=== PATIENT | female | born 1930 | race Caucasian/White ===

== ENCOUNTER 2016-11-23 13:44 | Inpatient (IN) | payer MEDICARE, MEDICAID ==
--- NOTE | 2016-11-23 14:24 | ED Physician Chart ---
Chief Complaint/HPI - Patient Information Date Seen:: 11/23/16 Time Seen:: 14:10 Chief Complaint:: skin tears History of Present Illness:: THIS IS AN 85 YO FEMALE [facility] PATIENT SENT TO THIS ER FOR AN EVALUATION OF HER SKIN BLISTERS OVER HER ENTIRE BODY. SHE HAS NOT HAD FEVER OR CHEST PAIN. SHE IS VERYL COMBATIVE AND UNCOOPERATIVE. SHE IS UNABLE TO GIVE A REVIEW OF SYSTEMS OR MEDICAL HISTORY. Allergies:: Allergies Allergy/AdvReac Type Severity Reaction Status Date / Time No Known Allergies Allergy Verified 03/21/16 16:58 Vitals:: Vital Signs - 8 hr 11/23/16 14:05 Temp 98.2 F HR 70 RR 19 BP 121/66 O2 Sat % 96 Historian:: Medical Records Review:: Nurse's Note Reviewed, Old Chart Reviewed Review of Systems - Review of Systems General/Constitutional: No fever, No chills, No weight loss, No weakness, No diaphoresis, No edema, No loss of appetite, Other (UNABLE TO GIVE AN REVIEW OF SYSTEMS.) Skin: No skin lesions, No rash, No bruising Head: No headache, No light-headedness Eyes: No loss of vision, No pain, No diplopia ENT: No earache, No nasal drainage, No sore throat, No tinnitus Neck: No neck pain, No swelling, No thyromegaly, No stiffness, No mass noted Cardio Vascular: No chest pain, No palpitations, No PND, No orthopnea, No edema Pulmonary: No SOB, No cough, No sputum, No wheezing GI: No nausea, No vomiting, No diarrhea, No pain, No melena, No hematochezia, No constipation, No hematemesis G/U: No dysuria, No frequency, No hematuria Musculoskeletal: No bone or joint pain, No back pain, No muscle pain Endocrine: No polyuria, No polydipsia Psychiatric: No prior psych history, No depression, No anxiety, No suicidal ideation Hematopoietic: No bruising, No lymphadenopathy Allergic/Immuno: No urticaria, No angioedema Neurological: No syncope, No focal symptoms, No weakness, No paresthesia, No headache, No seizure, No dizziness, No confusion, No vertigo Past Medical History - Past Medical History Obtainable: Yes Past Medical History: HTN, DM, CHF, DVT/PE, Arthritis, Dementia Family Medical History - Family Member Mother History Unknown: Yes Physical Exam - Physical Examination General/Constitutional: Awake, Well-developed, well-nourished, Alert, No distress, GCS 15, Non-toxic appearing, Ambulatory Other Gen/Cons comments:: COMBATIVE Head: Atraumatic Eyes: Lids, conjuctiva normal, PERRL, EOMI Skin: No ecchymosis, Well hydrated, No lymphadenopathy Other Skin comments:: WHOLE BODY SKIN BLISTERS AND SOME ARE DRAINING CLEAR EXUDATE COMING OUT OF THE SKIN LESIONS. ENMT: External ears, nose nl, Nasal exam nl Other ENMT comments:: POOR DENTURE HYGIENE. Neck: Nontender, Full ROM w/o pain, No JVD, No nuchal rigidity, No bruit, No mass, No stridor Respiratory: Nl effort/Exclusion, Clear to Auscultation, No Wheeze/Rhonchi/Rales Cardio Vascular: RRR, No murmur, gallop, rubs, NL S1 S2 GI: No tenderness/rebounding/guarding, No organomegaly, No hernia, Normal BS's, Nondistended, No mass/bruits, No McBurney tenderness : No CVA tenderness Extremities: No tenderness or effusion, Full ROM, normal strength in all extremities, No edema, Normal digits & nails Neuro/Psych: Alert/oriented, DTR's symmetric, Normal sensory exam, Normal motor strength, Judgement/insight normal, Mood normal, Normal gait Other Neuro/Psych comments:: 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 Misc: normal gait, Normal back, No paraspinal tenderness ED Septic Shock - . Is Septic Shock (SBP<90, OR Lactate>4 mmol\L) present?: No - <6hrs of presentation: Vital Signs: Vital Signs - 8 hr 11/23/16 14:05 Temp 98.2 F HR 70 RR 19 BP 121/66 O2 Sat % 96 Reassessment (Disposition) - Reassessment Reassessment Condition:: Unchanged - Diagnosis Diagnosis:: BULLOUS STREP INFECTION OF THE SKIN ANEMIA DIABETES MELLITUS UNCONTROLLED DEHYDRATED PSYCHOSIS AND COMBATIVE - Patient Disposition Discharge/Transfer:: Acute Care w/in this hosp Admitting Medical Physician:: Wagner Deras Condition at Disposition:: Unchanged
[2016-11-23 14:37] LABS: MEAN CELL VOLUME 88.7 fl (81-100); MEAN CORPUSCULAR HEMOGLOBIN 29.7 pg (27.0-31.0); MEAN CORPUSCULAR HGB CONC 33.5 pg (28.0-36.0); MEAN PLATELET VOLUME 9.2 fl; PLATELET COUNT 150 Th/cmm (150-400); RED BLOOD COUNT 3.86 Mil/cmm (3.80-5.20); RED CELL DISTRIBUTION WIDTH 17.3 % (11.5-20.0); WHITE BLOOD COUNT 10.6 Th/cmm (4.8-10.8)
[2016-11-23 14:44] LABS: HEMATOCRIT 34.3 % (35.0-45.0); HEMOGLOBIN 11.5 gm/dL (11.7-16.1)
[2016-11-23 14:54] LABS: INR 0.99 (0.5-1.4); PROTHROMBIN TIME (TEST) 10.3 SECONDS (9.5-11.5)
[2016-11-23 14:55] LABS: ALB/GLOB RATIO 1.1 (1.0-1.8); ALKALINE PHOSPHATASE 105 U/L (34-104); ANION GAP 7.9 (7.0-16.0); BILIRUBIN,TOTAL 0.7 mg/dL (0.3-1.0); BUN - UREA NITROGEN 42 mg/dL (7-25); CALCIUM SERUM 8.6 mg/dL (8.6-10.3); CARBON DIOXIDE 30.8 mEq/L (21.0-31.0); CHLORIDE 105 mEq/L (98-107); CREATININE - SERUM 0.7 mg/dL (0.6-1.2); GLUCOSE 314 mg/dL (70-105); POTASSIUM SERUM 3.7 mEq/L (3.5-5.1); SGOT 14 U/L (13-39); SGPT/ALT 17 U/L (7-52); SODIUM SERUM 140 mEq/L (136-145)
[2016-11-23 14:56] LABS: CHOLESTEROL 174 mg/dL (<200); TRIGLYCERIDES 212 mg/dL (<150)
--- NOTE | 2016-11-23 15:02 | Diagnostic Imaging Report ---
Portable chest x-ray HISTORY: Shortness of breath The heart appears enlarged. Surgical clips and suture material noted over the mid chest. Allowing for a poor inspiration, no acute focal pulmonary processes are seen. IMPRESSION: 1. No acute focal pulmonary processes 2. Cardiomegaly 3. Surgical changes
[2016-11-23 15:10] LABS: BAND NEUTROPHILE 2 % (0-10); EOSINOPHIL 1 % (0-5); NEUTROPHILS 87 % (40-80); PLATELET ESTIMATE ADEQUATE (NORMAL); TOTAL CELLS COUNTED 100
[2016-11-23] MEDS ORDERED: cefTRIAXone 1 GM in Sodium Chloride 0.9% 50 ML IV ONE (15:42)
[2016-11-23] MEDS ORDERED: Guaifenesin DM 10 ML UDC PO PRN (15:59)
[2016-11-23 16:40] LABS: URINE BILIRUBIN NEGATIVE (NEGATIVE); URINE BLOOD TRACE (NEGATIVE); URINE COLOR YELLOW; URINE GLUCOSE (UA) NEGATIVE (NEGATIVE); URINE KETONE NEGATIVE (NEGATIVE); URINE PROTEIN NEGATIVE (NEGATIVE); URINE RBC 0-1 /hpf (0-5); URINE UROBILINOGEN 0.2 E.U./dL (0.2 - 1.0)
[2016-11-23 16:41] LABS: URINE AMORPHOUS SEDIMENT FEW URATES (NONE SEEN); URINE BACTERIA FEW /hpf (NONE SEEN); URINE EPITHELIAL CELLS FEW /lpf (FEW); URINE HYALINE CAST 0-2 /lpf (0-2)
[2016-11-23] MEDS: Lactobacillus Rhamnosus 10 Billion CFU Capsule PO SCH (17:42)
[2016-11-23] MEDS: INSULIN ASPART SLIDING SCALE 100 UNITS/ML UNIT SUBQ SCH ×2 (17:42→20:38)
--- NOTE | 2016-11-23 17:51 | Consultation ---
Consult Note - Consult Note Service Date: 11/23/16 Referring Physician: Kane Deras Consult Note: PHYSICIAN Consultation Note: Date of Admission: 11/23/16 Purpose of Consultation: Chief Complaint: Patient MS MARLO ESPANA was admitted to location Medical/Surgical Unit I with ACUTE INFECTION. History of Present Illness: patient is 85 y female brought from the SNF for blisters and ecchymoses over the upper part of the body involving upper part pf arms and shoulders bilaterally. Otherwise, there is no fever, no chills. There is no nausea, vomiting, or diarrhea. Patient denies any abdominal pain. She was somewhat confused. Past Medical History: H/o HTN, DVT, CAD, Dementia. Allergies Allergy/AdvReac Type Severity Reaction Status Date / Time No Known Allergies Allergy Verified 03/21/16 16:58 Vital Signs Temp 98.2 F 11/23/16 14:05 Pulse 70 11/23/16 14:05 Resp 19 11/23/16 14:05 BP 121/66 11/23/16 14:05 Pulse Ox 96 11/23/16 14:05 Intake & Output 11/22/16 11/23/16 11/23/16 18:59 06:59 18:59 Weight (lbs) 83.007 kg Laboratory Results - last 24 hr 11/23/16 11/23/16 16:20 17:01 POC Glucose 242 H Urine Source CLEAN C Urine Color YELLOW Urine Clarity SLIGHT HAZY Urine pH 5.0 Ur Specific [place] 1.010 Urine Protein NEGATIVE Urine Glucose (UA) NEGATIVE Urine Ketones NEGATIVE Urine Blood TRACE Urine Nitrate NEGATIVE Urine Bilirubin NEGATIVE Urine Urobilinogen 0.2 Ur Leukocyte Esterase SMALL H Urine RBC 0-1 Urine WBC 6-10 H Ur Epithelial Cells FEW Amorphous Sediment FEW URATES Urine Bacteria FEW Hyaline Casts 0-2 H Urine Yeast FEW H Home Medication Medication Instructions Recorded Type Acetaminophen [Tylenol] 650 mg PO Q6H PRN 03/25/16 History QUEtiapine Fumarate [SEROquel] 12.5 mg PO BID 03/25/16 History QUEtiapine Fumarate [SEROquel] 25 mg PO HS 03/25/16 History Zolpidem Tartrate [Ambien] 5 mg PO HS PRN 03/25/16 History Carvedilol [Coreg] 25 mg PO DAILY #0 tab 03/31/16 Rx Hydrocodone/APAP 5mg/325mg [[place] 1 tab PO Q6H PRN #0 tab 03/31/16 Rx 5mg/325mg] Saccharomyces Boulardii [Florastor] 250 mg PO BID #0 cap 03/31/16 Rx Ascorbic Acid [Vitamin C] 500 mg PO BID 11/23/16 History Atorvastatin Calcium [Lipitor] 20 mg PO HS 11/23/16 History Furosemide [Lasix] 40 mg IVP DAILY 11/23/16 History Guaifenesin DM [Robitussin DM] 10 ml PO Q6HR PRN 11/23/16 History Insulin Aspart Sliding Scale See Protocol SUBQ ACHS 11/23/16 History [NovoLOG INSULIN SLIDING SCALE] Multivitamin w/ Minerals 1 tab PO DAILY 11/23/16 History [Theragran M] Mupirocin Oint [Bactroban] 1 appl TP DAILY 11/23/16 History Pantoprazole [Protonix] 40 mg PO DAILY 11/23/16 History Potassium Chloride Elixir 30 ml PO DAILY 11/23/16 History Povidone Iodine [Betadine] 1 appl TP DAILY 11/23/16 History Prostat 30 ml PO TID 11/23/16 History predniSONE [Deltasone] 20 mg PO DAILY 11/23/16 History Current Medications Generic Name Dose Route Start Last Admin Trade Name Freq PRN Reason Stop Dose Admin Acetaminophen 650 mg 11/23/16 15:59 Tylenol PO 01/22/17 15:58 Q6H PRN MILD PAIN Acetaminophen/Hydrocodone Bitart 1 tab 11/23/16 15:59 [place] 5mg/325mg PO 01/22/17 15:58 Q6H PRN moderate-severe pain Ascorbic Acid 500 mg 11/23/16 17:00 Vitamin C PO 01/22/17 16:59 BID BIJU Atorvastatin Calcium 20 mg 11/23/16 21:00 Lipitor PO 01/22/17 20:59 HS BIJU Carvedilol 25 mg 11/24/16 09:00 Coreg PO 01/23/17 08:59 DAILY BIJU Furosemide 40 mg 11/24/16 09:00 Lasix IVP 01/23/17 08:59 DAILY BIJU Guaifenesin/Dextromethorphan 10 ml 11/23/16 15:59 Robitussin Dm PO 01/22/17 15:58 Q6HR PRN Cough Insulin Aspart 0 units 11/23/16 16:30 Novolog Insulin Sliding Scale SUBQ 01/22/17 16:29 ACHS [facility] Protocol Lactobacillus Rhamnosus 1 each 11/23/16 17:00 Culturelle PO 01/22/17 16:59 BID BIJU Mupirocin 1 appl 11/24/16 09:00 Bactroban Oint TP 01/23/17 08:59 DAILY BIJU Pantoprazole Sodium 40 mg 11/24/16 09:00 Protonix PO 01/23/17 08:59 DAILY BIJU Potassium Chloride 40 meq 11/24/16 09:00 Potassium Chloride Elixir PO 01/23/17 08:59 DAILY BIJU Prednisone 20 mg 11/24/16 09:00 Deltasone PO 01/23/17 08:59 DAILY BIJU Quetiapine Fumarate 12.5 mg 11/23/16 17:00 Seroquel PO 01/22/17 16:59 BID BIJU Protocol Quetiapine Fumarate 25 mg 11/23/16 21:00 Seroquel PO 01/22/17 20:59 HS BIJU Protocol Zolpidem Tartrate 5 mg 11/23/16 15:59 Ambien PO 01/22/17 15:58 HS PRN Insomnia Review of Systems: A 12 point ROS was reviewed with the pertinent positive and negatives noted in the HPI. Physical Exam: General: Comfortable, not in distress. HEENT: EOMI Bilaterally, PERRLA Bilaterally, Head is normocephalic, atraumatic on inspection. Cardio: +S1/S2 Auscultated, RRR, no murmurs/rubs/gallops noted Respiratory: Clear to Auscultate Bilaterally Abdominal: Soft, Nondistended, Nontender to palpation x 4 quadrants Extremities: No Edema noted in the lower extremities Neurological: Alert and confused, No Acute Distress. Cranial Nerves II-XII intact bilaterally, Gait Steady, No Focal Deficits noted. IMPRESSION: 1. Blistering lesions with ecchymosis, may have autoimmune etiology versus allergic reaction. Unlikely of infectious origin, which cannot be ruled out. 2. Dementia. 3. HTN. 4. CAD. RECOMMENDATIONS: Continue prednisone. No need of antivioitcs at this time. ESR, TORIN. lupus panel. Signed, Nasir Rodrigez M.D. [id number]
[2016-11-23 19:42] VITALS: BP 113/78
[2016-11-23] MEDS: Atorvastatin Calcium 10 MG TAB PO SCH (20:38)
[2016-11-24] MEDS: INSULIN ASPART SLIDING SCALE 100 UNITS/ML UNIT SUBQ SCH ×4 (06:33→21:44)
[2016-11-24 07:17] LABS: % BASOPHILS 0.1 % (0.0-2.0); % EOSINOPHILS 0.7 % (0.0-5.0); % LYMPHOCYTES 14.5 % (20.0-50.0); % MONOCYTES 4.2 % (2.0-10.0); % NEUTROPHILS 80.5 % (40.0-80.0); HEMATOCRIT 37.4 % (35.0-45.0); HEMOGLOBIN 12.4 gm/dL (11.7-16.1); MEAN CELL VOLUME 88.1 fl (81-100); MEAN CORPUSCULAR HEMOGLOBIN 29.3 pg (27.0-31.0); MEAN CORPUSCULAR HGB CONC 33.2 pg (28.0-36.0); MEAN PLATELET VOLUME 9.5 fl; NEUTROPHILE ABSOLUTE 7.8 Th/cmm (1.8-8.0); PLATELET COUNT 164 Th/cmm (150-400); RED BLOOD COUNT 4.25 Mil/cmm (3.80-5.20); RED CELL DISTRIBUTION WIDTH 17.1 % (11.5-20.0); WHITE BLOOD COUNT 9.7 Th/cmm (4.8-10.8)
[2016-11-24 07:30] LABS: ALB/GLOB RATIO 1.1 (1.0-1.8); ALKALINE PHOSPHATASE 107 U/L (34-104); ANION GAP 13.6 (7.0-16.0); BILIRUBIN,TOTAL 0.9 mg/dL (0.3-1.0); BUN - UREA NITROGEN 36 mg/dL (7-25); CALCIUM SERUM 9.1 mg/dL (8.6-10.3); CARBON DIOXIDE 34.7 mEq/L (21.0-31.0); CHLORIDE 102 mEq/L (98-107); CREATININE - SERUM 0.6 mg/dL (0.6-1.2); GLUCOSE 87 mg/dL (70-105); POTASSIUM SERUM 3.3 mEq/L (3.5-5.1); SGOT 14 U/L (13-39); SGPT/ALT 18 U/L (7-52); SODIUM SERUM 147 mEq/L (136-145)
[2016-11-24 08:40] LABS: INR 0.99 (0.5-1.4); PROTHROMBIN TIME (TEST) 10.3 SECONDS (9.5-11.5)
[2016-11-24 08:46] LABS: CHOLESTEROL 187 mg/dL (<200); TRIGLYCERIDES 198 mg/dL (<150)
[2016-11-24] MEDS: Pantoprazole 40 mg EC Tab PO SCH (09:39)
[2016-11-24] MEDS: Multivitamin w/ Minerals Tab PO SCH (09:39)
[2016-11-24] MEDS: Lactobacillus Rhamnosus 10 Billion CFU Capsule PO SCH ×2 (09:39→16:37)
[2016-11-24] MEDS: Potassium Chloride Elixir 20 mEq /15 mL UDC PO SCH (09:39)
--- NOTE | 2016-11-24 11:28 | History & Physical ---
ADMIT DATE: 11/23/2016 CHIEF COMPLAINT: Multiple areas of skin discoloration and tears. HISTORY OF PRESENT ILLNESS: This is an 85-year-old female who is a resident of alf facility, was transferred to [facility] for multiple skin tears and discoloration to her upper and lower extremities as well as her upper and lower torso. The patient is a poor historian; therefore, majority of the history was taken from transfer notes as well as from alf transfer sheets. PAST MEDICAL HISTORY: Includes diabetes type 2, hypertension, psychosis, bilateral DVT, pulmonary embolus, CAD, dementia, DJD, COPD, status post coronary artery bypass graft, coronary artery disease. INITIAL LABORATORY DATA: White count 10.6, hemoglobin 11.5, hematocrit 34.3, platelets 150. Chem-7: Sodium 147, potassium 3.3, chloride 102, bicarbonate 34.7, BUN 36, creatinine 0.6, glucose 87. UA was positive for leukocyte esterase. CURRENT MEDICATIONS: Include atorvastatin, carvedilol, furosemide, hydrocodone, insulin sliding scale, lorazepam, pantoprazole, potassium, Seroquel, Ambien, and prednisone 20 mg daily. While in the ER, chest x-ray was ordered, which was essentially negative. FAMILY HISTORY: Noncontributory. ALLERGIES: No known drug allergies. SOCIAL HISTORY: The patient is a resident at alf [facility]. REVIEW OF SYSTEMS: Essentially negative with the exception of the above complaints. PHYSICAL EXAMINATION: VITAL SIGNS: Temperature 96.4, pulse 99, respiration 18, blood pressure 120/86. GENERAL: This is an 85-year-old female, well developed, well nourished, appears her stated age. HEENT: Normocephalic, atraumatic. Pupils equal, round, react to light and accommodation. Extraocular muscles intact. Ears: TMs intact. NECK: Supple. Good range of motion. No thyromegaly, no lymphadenopathy. CARDIOVASCULAR: Regular rate and rhythm. No murmurs, rubs or clicks. LUNGS: Clear to auscultation. No rales, rhonchi or wheezing. ABDOMEN: Soft, nontender, nondistended. Bowel sounds are active in all 4 quadrants. No rebound tenderness, rigidity, no guarding. SKIN: Multiple skin tears and skin discoloration noted with varying degrees of stage I, stage II pressure ulcers in the sacrococcyx area. The left upper leg shows an open blister. ____ also open blister. Right upper leg, scattered blisters. Right upper arm skin tear. ASSESSMENT: 1. Multiple areas of discoloration and tears to the skin. 2. Bilateral deep venous thrombosis. 3. History of pulmonary embolus. 4. Coronary artery disease. 5. Dementia. 6. Degenerative joint disease. 7. Chronic obstructive pulmonary disease. 8. Status post coronary artery bypass grafting. 9. Hyperlipidemia. PLAN: We will order ID consult. Continue current medications. We will discontinue prednisone for now. We will order CBC and Chem-7, sed rate. The patient to be started on preliminary antibiotic treatment. [facility]# [id number]
--- NOTE | 2016-11-24 12:09 | Infectious Disease Prog Note ---
Infectious Disease Subjective - Review of Systems Service Date: 11/24/16 Subjective: No new chnage. There is no fever. Infectious Disease Objective - Results Result Diagrams: 11/24/16 06:30 11/24/16 06:30 Recent Labs: Laboratory Last Values WBC 9.7 Th/cmm (4.8-10.8) 11/24/16 06:30 RBC 4.25 Mil/cmm (3.80-5.20) 11/24/16 06:30 Hgb 12.4 gm/dL (11.7-16.1) 11/24/16 06:30 Hct 37.4 % (35.0-45.0) 11/24/16 06:30 MCV 88.1 fl (81-100) 11/24/16 06:30 MCH 29.3 pg (27.0-31.0) 11/24/16 06:30 MCHC Differential 33.2 pg (28.0-36.0) 11/24/16 06:30 RDW 17.1 % (11.5-20.0) 11/24/16 06:30 Plt Count 164 Th/cmm (150-400) 11/24/16 06:30 MPV 9.5 fl 11/24/16 06:30 Neutrophils % 80.5 % (40.0-80.0) H 11/24/16 06:30 Band Neutrophils % 2 % (0-10) 11/23/16 14:25 Lymphocytes % 14.5 % (20.0-50.0) L 11/24/16 06:30 Monocytes % 4.2 % (2.0-10.0) 11/24/16 06:30 Eosinophils % 0.7 % (0.0-5.0) 11/24/16 06:30 Basophils % 0.1 % (0.0-2.0) 11/24/16 06:30 Neutrophils (Manual) 87 % (40-80) H 11/23/16 14:25 Lymphocytes 8 % (20-50) L 11/23/16 14:25 Monocytes 2 % (2-10) 11/23/16 14:25 Eosinophils 1 % (0-5) 11/23/16 14:25 Platelet Estimate ADEQUATE (NORMAL) 11/23/16 14:25 ESR 37 mm/hr (0-30) H 11/24/16 06:30 PT 10.3 SECONDS (9.5-11.5) 11/24/16 06:30 INR 0.99 (0.5-1.4) 11/24/16 06:30 PTT (Actin FS) 20.4 SECONDS (26.0-38.0) L 11/23/16 14:25 Sodium 147 mEq/L (136-145) H 11/24/16 06:30 Potassium 3.3 mEq/L (3.5-5.1) L 11/24/16 06:30 Chloride 102 mEq/L (98-107) 11/24/16 06:30 Carbon Dioxide 34.7 mEq/L (21.0-31.0) H 11/24/16 06:30 Anion Gap 13.6 (7.0-16.0) 11/24/16 06:30 BUN 36 mg/dL (7-25) H 11/24/16 06:30 Creatinine 0.6 mg/dL (0.6-1.2) 11/24/16 06:30 Est GFR ( Amer) TNP 11/24/16 06:30 Est GFR (Non-Af Amer) TNP 11/24/16 06:30 BUN/Creatinine Ratio 60.0 11/24/16 06:30 Glucose 87 mg/dL (70-105) 11/24/16 06:30 POC Glucose 189 MG/DL (70 - 105) H 11/24/16 11:12 Hemoglobin A1c % 7.9 % (4.0-6.0) H 11/23/16 14:25 Calcium 9.1 mg/dL (8.6-10.3) 11/24/16 06:30 Total Bilirubin 0.9 mg/dL (0.3-1.0) 11/24/16 06:30 AST 14 U/L (13-39) 11/24/16 06:30 ALT 18 U/L (7-52) 11/24/16 06:30 Alkaline Phosphatase 107 U/L (34-104) H 11/24/16 06:30 Troponin I 0.04 ng/mL (0.01-0.05) 11/23/16 14:25 Total Protein 5.7 gm/dL (6.0-8.3) L 11/24/16 06:30 Albumin 3.0 gm/dL (3.7-5.3) L 11/24/16 06:30 Globulin 2.7 gm/dL 11/24/16 06:30 Albumin/Globulin Ratio 1.1 (1.0-1.8) 11/24/16 06:30 Triglycerides 198 mg/dL (<150) H 11/24/16 06:30 Cholesterol 187 mg/dL (<200) 11/24/16 06:30 LDL Cholesterol Direct 117 mg/dL (75-193) 11/24/16 06:30 HDL Cholesterol 50 mg/dL (23-92) 11/24/16 06:30 TSH 1.39 uIU/ml (0.34-5.60) 11/23/16 14:18 Urine Source CLEAN C 11/23/16 16:20 Urine Color YELLOW 11/23/16 16:20 Urine Clarity SLIGHT HAZY (CLEAR) 11/23/16 16:20 Urine pH 5.0 11/23/16 16:20 Ur Specific [place] 1.010 (1.005-1.030) 11/23/16 16:20 Urine Protein NEGATIVE mg/dL (NEGATIVE) 11/23/16 16:20 Urine Glucose (UA) NEGATIVE mg/dL (NEGATIVE) 11/23/16 16:20 Urine Ketones NEGATIVE mg/dL (NEGATIVE) 11/23/16 16:20 Urine Blood TRACE (NEGATIVE) 11/23/16 16:20 Urine Nitrate NEGATIVE (NEGATIVE) 11/23/16 16:20 Urine Bilirubin NEGATIVE (NEGATIVE) 11/23/16 16:20 Urine Urobilinogen 0.2 E.U./dL (0.2 - 1.0) 11/23/16 16:20 Ur Leukocyte Esterase SMALL (NEGATIVE) H 11/23/16 16:20 Urine RBC 0-1 /hpf (0-5) 11/23/16 16:20 Urine WBC 6-10 /hpf (0-5) H 11/23/16 16:20 Ur Epithelial Cells FEW /lpf (FEW) 11/23/16 16:20 Amorphous Sediment FEW URATES (NONE SEEN) 11/23/16 16:20 Urine Bacteria FEW /hpf (NONE SEEN) 11/23/16 16:20 Hyaline Casts 0-2 /lpf (0-2) H 11/23/16 16:20 Urine Yeast FEW /hpf (NONE SEEN) H 11/23/16 16:20 RPR NONREACTIVE (NONREACTIVE) 11/23/16 14:25 - Physical Exam Vitals and I&O: Vital Signs Temp 97.7 F 11/24/16 10:00 Pulse 111 11/24/16 10:00 Resp 18 11/24/16 10:00 BP 120/75 11/24/16 10:00 Pulse Ox 93 11/24/16 10:00 Intake & Output 11/23/16 11/24/16 11/24/16 18:59 06:59 18:59 Intake Total 350 Balance 350 Weight (lbs) 83.007 kg Intake: Oral 350 Other: # Voids 2 # Bowel Movements 0 Active Medications: Current Medications Acetaminophen (Tylenol) 650 mg PO Q6H PRN PRN Reason: MILD PAIN Stop: 01/22/17 15:58 Acetaminophen/Hydrocodone Bitart ([place] 5mg/325mg) 1 tab PO Q6H PRN PRN Reason: moderate-severe pain Stop: 01/22/17 15:58 Ascorbic Acid (Vitamin C) 500 mg PO BID BIJU Stop: 01/22/17 16:59 Last Admin: 11/24/16 09:39 Dose: Not Given Atorvastatin Calcium (Lipitor) 20 mg PO HS BIJU Stop: 01/22/17 20:59 Last Admin: 11/23/16 20:38 Dose: 20 mg Carvedilol (Coreg) 25 mg PO DAILY BIJU Stop: 01/23/17 08:59 Last Admin: 11/24/16 09:39 Dose: Not Given Furosemide (Lasix) 40 mg IVP DAILY BIJU Stop: 01/23/17 08:59 Last Admin: 11/24/16 08:50 Dose: 40 mg Guaifenesin/Dextromethorphan (Robitussin Dm) 10 ml PO Q6HR PRN PRN Reason: Cough Stop: 01/22/17 15:58 Ceftriaxone Sodium 1 gm/ (Dextrose) 50 mls @ 100 mls/hr IV Q24H BIJU Stop: 01/23/17 08:59 Last Admin: 11/24/16 09:51 Dose: 100 mls/hr Insulin Aspart (Novolog Insulin Sliding Scale) 0 units SUBQ ACHS BIJU PRN Reason: Protocol Stop: 01/22/17 16:29 Last Admin: 11/24/16 06:33 Dose: Not Given Lactobacillus Rhamnosus (Culturelle) 1 each PO BID BIJU Stop: 01/22/17 16:59 Last Admin: 11/24/16 09:39 Dose: Not Given Mupirocin (Bactroban Oint) 1 appl TP DAILY BIJU Stop: 01/23/17 08:59 Last Admin: 11/24/16 08:50 Dose: 1 appl Pantoprazole Sodium (Protonix) 40 mg PO DAILY BIJU Stop: 01/23/17 08:59 Last Admin: 11/24/16 09:39 Dose: Not Given Potassium Chloride (Potassium Chloride Elixir) 40 meq PO DAILY BIJU Stop: 01/23/17 08:59 Last Admin: 11/24/16 09:39 Dose: Not Given Quetiapine Fumarate (Seroquel) 12.5 mg PO BID BIJU PRN Reason: Protocol Stop: 01/22/17 16:59 Last Admin: 11/24/16 09:40 Dose: Not Given Quetiapine Fumarate (Seroquel) 25 mg PO HS BIJU PRN Reason: Protocol Stop: 01/22/17 20:59 Last Admin: 11/23/16 20:38 Dose: 25 mg Zolpidem Tartrate (Ambien) 5 mg PO HS PRN PRN Reason: Insomnia Stop: 01/22/17 15:58 General: no acute distress, well developed, well nourished HEENT: atraumatic, normocephalic, PERRLA, EOMI Neck: supple Cardiovascular: S1S2, regular Lungs: clear to auscultation bilaterally, clear to percussion Abdomen: soft, no tender, no distended Extremities: no cyanosis, no clubbing, no edema Neurological: awake, alert Skin: intact, other (ecchylosis) Infectious Disease Assmt/Plan - Problem List Patient Problems: All Active Problems SKIN LESIONS WITH ULCERS AND ECCYMOSIS (Acute) - Assessment Assessment: IMPRESSION: 1. Blistering lesions with ecchymosis, may have autoimmune etiology versus allergic reaction. Unlikely of infectious origin, which cannot be ruled out. 2. Dementia. 3. HTN. 4. CAD. RECOMMENDATIONS: Continue prednisone. No need of antibiotics at this time. TORIN. lupus panel.
--- NOTE | 2016-11-24 16:23 | Admit Criteria Form ---
Admit Criteria Forms - Admit Criteria Diagnosis: DEEP VENOUS THROMBOSIS OF LOWER EXTREMITIES Clinical Indications for Admission to Inpatient Care ( Place 'X' for any and all applicable criteria): Admission is indicated for ANY ONE of the following (1)(2)(3)(4): [ ]I. Documented extensive thrombosis (e.g., clot in vena cava or above iliofemoral bifurcation) [ ]II. Limb-threatening thrombosis (e.g., phlegmasia cerulea dolens) [ ]III. Active bleeding [ ]IV. Recent surgery (e.g., within 6 weeks) [ ]V. Active peptic ulcer disease [ ]. Thrombosis while on anticoagulation [ ]VII. [X ]VIII. Appropriate monitoring and therapy cannot be provided in home or outpatient setting [ ]IX. Thrombolysis (e.g., catheter-directed) or pharmaco mechanical thrombectomy needed (3) [ ]X. Vena cava filter placement planned (3) [ ]XI. Severely diminished cardiopulmonary reserve (e.g., pulmonary hypertension) [ ]XII. Severe renal failure (e.g., GFR less than 30 mL/min/1.73m2 (0.5 mL/sec /1.73m2)) [ ]XIII. Known clotting abnormality or deficiency (antithrombin III, protein C , or protein S) [ ]XIV. History of heparin-induced thrombocytopenia [ ]XV . Personal or family history of bleeding tendency or familial bleeding disorder that requires inpatient admission rather than observation care (Also use Deep Venous Thrombosis of Lower Extremities: Observation Care as appropriate) because of ANY ONE of the following: [ ]a) Significant allergic, autoimmune (thrombocytopenia), or coagulopathic reaction occurs in response to anticoagulation [ ]b) Other significant finding or clinical condition judged not to be within the scope of observation care Extended stay beyond goal length of stay may be needed for(1)(19): [ ]a) Hemorrhage or recent surgery(3) [ ]b) Inadequate oral anticoagulation [ ]c) Recurrent thromboembolism(3) [ ]d) Heparin-induced thrombocytopenia(14) The original [facility] content created by [facility] [employer] has been revised. The portions of the content which have been revised are identified through the use of italic text or in bold, and [employer]mberto [employer] has neither reviewed nor approved the modified material. All other unmodified content is copyright [facility]. Please see references footnoted in the original [facility] edition 2016 Admit Criteria Met?: Yes
[2016-11-24] MEDS: Atorvastatin Calcium 10 MG TAB PO SCH (21:41)
[2016-11-25] MEDS: INSULIN ASPART SLIDING SCALE 100 UNITS/ML UNIT SUBQ SCH ×4 (06:39→21:30)
[2016-11-25 07:16] LABS: % BASOPHILS 0.1 % (0.0-2.0); % EOSINOPHILS 0.9 % (0.0-5.0); % LYMPHOCYTES 10.6 % (20.0-50.0); % MONOCYTES 3.6 % (2.0-10.0); % NEUTROPHILS 84.8 % (40.0-80.0); HEMATOCRIT 36.9 % (35.0-45.0); HEMOGLOBIN 12.2 gm/dL (11.7-16.1); MEAN CELL VOLUME 87.3 fl (81-100); MEAN CORPUSCULAR HGB CONC 33.2 pg (28.0-36.0); MEAN PLATELET VOLUME 9.2 fl; NEUTROPHILE ABSOLUTE 9.8 Th/cmm (1.8-8.0); PLATELET COUNT 153 Th/cmm (150-400); RED BLOOD COUNT 4.23 Mil/cmm (3.80-5.20); RED CELL DISTRIBUTION WIDTH 17.8 % (11.5-20.0); WHITE BLOOD COUNT 11.5 Th/cmm (4.8-10.8)
[2016-11-25 07:27] LABS: ALKALINE PHOSPHATASE 114 U/L (34-104); BILIRUBIN,TOTAL 1.2 mg/dL (0.3-1.0); BUN - UREA NITROGEN 30 mg/dL (7-25); CARBON DIOXIDE 33.2 mEq/L (21.0-31.0); CHLORIDE 103 mEq/L (98-107); CREATININE - SERUM 0.6 mg/dL (0.6-1.2); GLUCOSE 165 mg/dL (70-105); POTASSIUM SERUM 3.2 mEq/L (3.5-5.1); SGOT 13 U/L (13-39); SGPT/ALT 17 U/L (7-52); SODIUM SERUM 143 mEq/L (136-145)
--- NOTE | 2016-11-25 07:30 | Consultation ---
DATE OF CONSULTATION: 11/24/2016 IDENTIFYING INFORMATION: The patient is an 85-year-old female. REASON FOR CONSULTATION: The patient was admitted with acute infection. She has dementia. The patient has been on psychotropic medications. The patient herself was a poor historian, unable to participate in a meaningful conversation and I talked to the charge nurse that talking to her and he could not give me any answer either. The patient has infection and she also has a history of dementia, confusion. She has multiple discolorations and tears to her skin. PAST PSYCHIATRIC HISTORY: Dementia. PAST MEDICAL HISTORY: Deferred to the medical doctor. FAMILY AND SOCIAL HISTORY: Unobtainable. MENTAL STATUS EXAMINATION: The patient was unable to participate in a meaningful conversation, lethargic, unable to tell me her age, where she is, why she is here, neither the staff was able to get anything from her. She is unable to answer questions regarding her condition. She is delirious. Her insight and judgment are impaired. IMPRESSION: AXIS I: Dementia and delirium. PLAN: I would recommend to continue her medication. Thank you very much for allowing me to participate in the care of this most interesting lady. I am covering for Dr. Han. Dr. Han will follow up with the patient. JOB# [id number]
[2016-11-25] MEDS: Lactobacillus Rhamnosus 10 Billion CFU Capsule PO SCH ×2 (09:25→16:22)
[2016-11-25] MEDS: Multivitamin w/ Minerals Tab PO SCH (09:25)
[2016-11-25] MEDS: Pantoprazole 40 mg EC Tab PO SCH (09:26)
[2016-11-25] MEDS: Potassium Chloride Elixir 20 mEq /15 mL UDC PO SCH (09:34)
[2016-11-25] MEDS: KCL 20mEq/100mL Premix 20 MEQ/100 ML PIGGYBACK IV SCH ×2 (09:40→12:26)
[2016-11-25] MEDS: Hydrocodone/APAP 5mg/325mg Tab PO PRN ×2 (10:49→16:22)
[2016-11-25] MEDS: Atorvastatin Calcium 10 MG TAB PO SCH (21:27)
[2016-11-26] MEDS: Hydrocodone/APAP 5mg/325mg Tab PO PRN ×2 (03:59→14:59)
[2016-11-26] MEDS: INSULIN ASPART SLIDING SCALE 100 UNITS/ML UNIT SUBQ SCH (06:51)
[2016-11-26 07:26] LABS: ALB/GLOB RATIO 1.1 (1.0-1.8); ALKALINE PHOSPHATASE 123 U/L (34-104); ANION GAP 8.5 (7.0-16.0); BILIRUBIN,TOTAL 1.2 mg/dL (0.3-1.0); BUN - UREA NITROGEN 33 mg/dL (7-25); BUN/CREATININE RATIO 47.1; CALCIUM SERUM 9.4 mg/dL (8.6-10.3); CARBON DIOXIDE 34.8 mEq/L (21.0-31.0); CHLORIDE 103 mEq/L (98-107); CREATININE - SERUM 0.7 mg/dL (0.6-1.2); GLUCOSE 186 mg/dL (70-105); POTASSIUM SERUM 4.3 mEq/L (3.5-5.1); SGOT 13 U/L (13-39); SGPT/ALT 17 U/L (7-52); SODIUM SERUM 142 mEq/L (136-145)
[2016-11-26] MEDS: Multivitamin w/ Minerals Tab PO SCH (09:38)
[2016-11-26] MEDS: Pantoprazole 40 mg EC Tab PO SCH (09:38)
[2016-11-26] MEDS: Lactobacillus Rhamnosus 10 Billion CFU Capsule PO SCH (09:38)
[2016-11-26] MEDS: Potassium Chloride Elixir 20 mEq /15 mL UDC PO SCH (09:50)
--- NOTE | 2016-11-26 12:00 | Infectious Disease Prog Note ---
Infectious Disease Subjective - Review of Systems Service Date: 11/26/16 Subjective: No new chnage. There is no fever. Infectious Disease Objective - Results Result Diagrams: 11/25/16 06:40 11/26/16 06:20 Recent Labs: Laboratory Last Values WBC 11.5 Th/cmm (4.8-10.8) H 11/25/16 06:40 RBC 4.23 Mil/cmm (3.80-5.20) 11/25/16 06:40 Hgb 12.2 gm/dL (11.7-16.1) 11/25/16 06:40 Hct 36.9 % (35.0-45.0) 11/25/16 06:40 MCV 87.3 fl (81-100) 11/25/16 06:40 MCH 29.0 pg (27.0-31.0) 11/25/16 06:40 MCHC Differential 33.2 pg (28.0-36.0) 11/25/16 06:40 RDW 17.8 % (11.5-20.0) 11/25/16 06:40 Plt Count 153 Th/cmm (150-400) 11/25/16 06:40 MPV 9.2 fl 11/25/16 06:40 Neutrophils % 84.8 % (40.0-80.0) H 11/25/16 06:40 Band Neutrophils % 2 % (0-10) 11/23/16 14:25 Lymphocytes % 10.6 % (20.0-50.0) L 11/25/16 06:40 Monocytes % 3.6 % (2.0-10.0) 11/25/16 06:40 Eosinophils % 0.9 % (0.0-5.0) 11/25/16 06:40 Basophils % 0.1 % (0.0-2.0) 11/25/16 06:40 Neutrophils (Manual) 87 % (40-80) H 11/23/16 14:25 Lymphocytes 8 % (20-50) L 11/23/16 14:25 Monocytes 2 % (2-10) 11/23/16 14:25 Eosinophils 1 % (0-5) 11/23/16 14:25 Platelet Estimate ADEQUATE (NORMAL) 11/23/16 14:25 ESR 37 mm/hr (0-30) H 11/24/16 06:30 PT 10.3 SECONDS (9.5-11.5) 11/24/16 06:30 INR 0.99 (0.5-1.4) 11/24/16 06:30 PTT (Actin FS) 20.4 SECONDS (26.0-38.0) L 11/23/16 14:25 Sodium 142 mEq/L (136-145) 11/26/16 06:20 Potassium 4.3 mEq/L (3.5-5.1) 11/26/16 06:20 Chloride 103 mEq/L (98-107) 11/26/16 06:20 Carbon Dioxide 34.8 mEq/L (21.0-31.0) H 11/26/16 06:20 Anion Gap 8.5 (7.0-16.0) 11/26/16 06:20 BUN 33 mg/dL (7-25) H 11/26/16 06:20 Creatinine 0.7 mg/dL (0.6-1.2) 11/26/16 06:20 Est GFR ( Amer) TNP 11/26/16 06:20 Est GFR (Non-Af Amer) TNP 11/26/16 06:20 BUN/Creatinine Ratio 47.1 11/26/16 06:20 Glucose 186 mg/dL (70-105) H 11/26/16 06:20 POC Glucose 278 MG/DL (70 - 105) H 11/26/16 11:46 Hemoglobin A1c % 7.9 % (4.0-6.0) H 11/23/16 14:25 Calcium 9.4 mg/dL (8.6-10.3) 11/26/16 06:20 Magnesium 2.3 mg/dL (1.9-2.7) 11/25/16 06:40 Total Bilirubin 1.2 mg/dL (0.3-1.0) H 11/26/16 06:20 AST 13 U/L (13-39) 11/26/16 06:20 ALT 17 U/L (7-52) 11/26/16 06:20 Alkaline Phosphatase 123 U/L (34-104) H 11/26/16 06:20 Troponin I 0.04 ng/mL (0.01-0.05) 11/23/16 14:25 Total Protein 5.8 gm/dL (6.0-8.3) L 11/26/16 06:20 Albumin 3.0 gm/dL (3.7-5.3) L 11/26/16 06:20 Globulin 2.8 gm/dL 11/26/16 06:20 Albumin/Globulin Ratio 1.1 (1.0-1.8) 11/26/16 06:20 Prealbumin 23 mg/dL (9-32) 11/25/16 06:40 Triglycerides 198 mg/dL (<150) H 11/24/16 06:30 Cholesterol 187 mg/dL (<200) 11/24/16 06:30 LDL Cholesterol Direct 117 mg/dL (75-193) 11/24/16 06:30 HDL Cholesterol 50 mg/dL (23-92) 11/24/16 06:30 TSH 1.39 uIU/ml (0.34-5.60) 11/23/16 14:18 Urine Source CLEAN C 11/23/16 16:20 Urine Color YELLOW 11/23/16 16:20 Urine Clarity SLIGHT HAZY (CLEAR) 11/23/16 16:20 Urine pH 5.0 11/23/16 16:20 Ur Specific [place] 1.010 (1.005-1.030) 11/23/16 16:20 Urine Protein NEGATIVE mg/dL (NEGATIVE) 11/23/16 16:20 Urine Glucose (UA) NEGATIVE mg/dL (NEGATIVE) 11/23/16 16:20 Urine Ketones NEGATIVE mg/dL (NEGATIVE) 11/23/16 16:20 Urine Blood TRACE (NEGATIVE) 11/23/16 16:20 Urine Nitrate NEGATIVE (NEGATIVE) 11/23/16 16:20 Urine Bilirubin NEGATIVE (NEGATIVE) 11/23/16 16:20 Urine Urobilinogen 0.2 E.U./dL (0.2 - 1.0) 11/23/16 16:20 Ur Leukocyte Esterase SMALL (NEGATIVE) H 11/23/16 16:20 Urine RBC 0-1 /hpf (0-5) 11/23/16 16:20 Urine WBC 6-10 /hpf (0-5) H 11/23/16 16:20 Ur Epithelial Cells FEW /lpf (FEW) 11/23/16 16:20 Amorphous Sediment FEW URATES (NONE SEEN) 11/23/16 16:20 Urine Bacteria FEW /hpf (NONE SEEN) 11/23/16 16:20 Hyaline Casts 0-2 /lpf (0-2) H 11/23/16 16:20 Urine Yeast FEW /hpf (NONE SEEN) H 11/23/16 16:20 Rheumatoid Factor <10.0 IU/mL (0.0-13.9) 11/25/16 06:40 RPR NONREACTIVE (NONREACTIVE) 11/23/16 14:25 - Physical Exam Vitals and I&O: Vital Signs Temp 98.4 F 11/26/16 04:00 Pulse 97 11/26/16 09:42 Resp 20 11/26/16 08:05 BP 156/77 11/26/16 10:06 Pulse Ox 97 11/26/16 08:05 Intake & Output 11/25/16 11/26/16 11/26/16 18:59 06:59 18:59 Intake Total 1350 150 Balance 1350 150 Intake: Intake, IV Amount 150 KCL 20mEq/100mL Premix 20 100 meq In 100 ml @ 50 mls/ hr IV Q2H [facility] Rx#: [id number] cefTRIAXone 1 gm In 50 Dextrose 5% 50 ml @ 100 mls/hr IV Q24H [facility] Rx#: [id number] Oral 1200 150 Other: # Voids 4 3 Active Medications: Current Medications Acetaminophen (Tylenol) 650 mg PO Q6H PRN PRN Reason: MILD PAIN Stop: 01/22/17 15:58 Acetaminophen/Hydrocodone Bitart ([place] 5mg/325mg) 1 tab PO Q6H PRN PRN Reason: moderate-severe pain Stop: 01/22/17 15:58 Last Admin: 11/26/16 03:59 Dose: 1 tab Ascorbic Acid (Vitamin C) 500 mg PO BID BIJU Stop: 01/22/17 16:59 Last Admin: 11/26/16 09:50 Dose: 500 mg Atorvastatin Calcium (Lipitor) 20 mg PO HS BIJU Stop: 01/22/17 20:59 Last Admin: 11/25/16 21:27 Dose: 20 mg Carvedilol (Coreg) 25 mg PO DAILY BIJU Stop: 01/23/17 08:59 Last Admin: 11/26/16 09:42 Dose: 25 mg Furosemide (Lasix) 40 mg IVP DAILY BIJU Stop: 01/23/17 08:59 Last Admin: 11/26/16 10:06 Dose: 40 mg Guaifenesin/Dextromethorphan (Robitussin Dm) 10 ml PO Q6HR PRN PRN Reason: Cough Stop: 01/22/17 15:58 Ceftriaxone Sodium 1 gm/ (Dextrose) 50 mls @ 100 mls/hr IV Q24H BIJU Stop: 01/23/17 08:59 Last Admin: 11/26/16 10:05 Dose: 100 mls/hr Insulin Aspart (Novolog Insulin Sliding Scale) 0 units SUBQ ACHS BIJU PRN Reason: Protocol Stop: 01/22/17 16:29 Last Admin: 11/26/16 06:51 Dose: Not Given Lactobacillus Rhamnosus (Culturelle) 1 each PO BID BIJU Stop: 01/22/17 16:59 Last Admin: 11/26/16 09:38 Dose: 1 each Mupirocin (Bactroban Oint) 1 appl TP DAILY BIJU Stop: 01/23/17 08:59 Last Admin: 11/25/16 09:34 Dose: 1 appl Pantoprazole Sodium (Protonix) 40 mg PO DAILY BIJU Stop: 01/23/17 08:59 Last Admin: 11/26/16 09:38 Dose: 40 mg Potassium Chloride (Potassium Chloride Elixir) 40 meq PO DAILY BIJU Stop: 01/23/17 08:59 Last Admin: 11/26/16 09:50 Dose: 40 meq Quetiapine Fumarate (Seroquel) 25 mg PO HS BIJU PRN Reason: Protocol Stop: 01/22/17 20:59 Last Admin: 11/25/16 21:27 Dose: 25 mg Quetiapine Fumarate (Seroquel) 12.5 mg PO DAILY BIJU PRN Reason: Protocol Stop: 01/24/17 08:59 Last Admin: 11/26/16 09:38 Dose: 12.5 mg Zolpidem Tartrate (Ambien) 5 mg PO HS PRN PRN Reason: Insomnia Stop: 01/22/17 15:58 General: no acute distress, well developed, well nourished HEENT: atraumatic, normocephalic, PERRLA, EOMI Neck: supple Cardiovascular: S1S2, regular Lungs: clear to auscultation bilaterally, clear to percussion Abdomen: soft, bowel sounds, no tender, no distended Extremities: no cyanosis, no clubbing, no edema Neurological: awake, alert Skin: other (ecchymosis) Infectious Disease Assmt/Plan - Problem List Patient Problems: All Active Problems SKIN LESIONS WITH ULCERS AND ECCYMOSIS (Acute) - Assessment Assessment: IMPRESSION: 1. Blistering lesions with ecchymosis, may have autoimmune etiology versus allergic reaction. Unlikely of infectious origin, which cannot be ruled out. 2. Dementia. 3. HTN. 4. CAD. RECOMMENDATIONS: Continue prednisone. No need of antibiotics at this time. TORIN. lupus panel. Nutritional Asmnt/Malnutr-PDOC - Dietary Evaluation Malnutrition Findings (Please click <Entered> for more info): Nutritional Asmnt/Malnutrition Start: 11/24/16 12: 56 Text: Status: Complete Freq: Document 11/24/16 12:56 [facility] (Rec: 11/24/16 13:09 [email or web address]) Nutritional Asmnt/Malnutrition Patient General Information Nutritional Screening Consult Diagnosis Multiple areas of discoloration and tears to the skin Pertinent Medical Hx/Surgical Hx DM2, HTN, psychosis, bilateral DVT, pulmonary embolus, CAD, dementia, DJD, COPD, s/p coronary artery bypass graft Subjective Information 85 year old female from SNF. RD consult for low Eduardo, multiple bullae. Pt was asleep during visit, unable to be woken up, poor historian per H &P. Pt is overweight, moderate wasting to temporals noted. Pt requires total assist with meals. Spoke to QUALITY ANALYST, pt is usually resting with eyes closed, ate 50% breakfast with eyes closed today, appetite seems fair, no difficulties swallowing/chewing noted. Current Diet Order/ Nutrition Support [id number], chopped Pertinent Medications Lipitor, Lasix, Novolog, Culturelle, Protonix, Seroquel Pertinent Labs 11/23: glucose 314H, A1c 7.9H 5/2: glucose 87 Nutritional Hx/Data Height 1.63 m Height (Calculated Centimeters) 162.6 Current Weight (lbs) 77.973 kg Weight (Calculated Kilograms) 78.0 Weight (Calculated Grams) 24406.5 [place] Body Weight 120 Weight Status Overweight GI Symptoms Food Allergies No Usual diet at home [place]: regular, SHIRA, CCHO Skin Integrity/Comment: Eduardo 13. Wound care 5/2: multiple fluid filled bullae Current %PO Fair (50-74%) Estimated Nutritional Goals BEE in Kcals: Adj wt of IBW Calories/Kcals/Kg 133lb/60.4kg Kcals Calculated 1510-1812kcal (25-30kcal/kg) Protein: Adj wt of IBW Protein Calculated 60g (1g/kg) Fluid: ml 1510-1812ml (1ml/kcal) Nutritional Problem 1. Problem Problem Altered nutrition related laboratory values related to Etiology DM 2 aeb Signs/Symptoms: A1c 7.9H, glucose 314 on adm Intervention/Recommendation Comments 1. Continue with [id number]. Pt noted with fair appetite, 50% breakfast this AM. Recommend [id number] if PO increases to meet at least 75% of estimated nutritional needs to better promote glycemia control. 2. Continue to provide total assist with meals. Expected Outcomes/Goals Expected Outcomes/Goals 1. PO intake to meet at least 75% of estimated nutritional needs. Physician Parameters for PEM Serum Albumin (g/dl) 2.4 - 3.0 (Moderate)
[2016-11-26] MEDS ORDERED: VTE Chemical Prophylaxis Screen/Admission MC PRN (16:15)
--- NOTE | 2016-11-27 04:39 | Progress Notes ---
DATE: 11/26/2016 SUBJECTIVE: Chart reviewed and the patient interviewed. Also discussed the patient's condition with the staff and reviewed records and labs. The patient is more agitated and more irritable today. The patient also is yelling and screaming. Also, the patient was sedated and after I decreased her Seroquel. It seemed the patient is getting worse and agitated and irritable. She also still needs lots of redirections. The patient also is having trouble with her following directions. ASSESSMENT: The patient is more agitated. TREATMENT PLAN: We will continue monitoring her behavior. Also, we will increase Seroquel to 12.5 mg twice a day and 25 mg at bedtime, and we will continue to follow up. JOB# [id number]
[2016-11-27 15:13] LABS: INTERPRETATION Comment:; PTT-LA 23.8 sec (0.0-43.6)
--- NOTE | 2016-12-04 00:23 | Discharge Summary ---
DATE OF DISCHARGE: 11/26/2016 PRELIMINARY DIAGNOSES: 1. Multiple areas of discoloration and tears of the skin. 2. Bilateral deep vein thrombocytosis. 3. History of pulmonary embolism. 4. Coronary artery disease. 5. Dementia. 6. Degenerative joint disease. 7. Chronic obstructive pulmonary disease. 8. Status post coronary artery bypass graft. 9. Hyperlipidemia. DISCHARGE DIAGNOSES: 1. Multiple areas of discoloration and tears of the skin. 2. Bilateral deep vein thrombocytosis. 3. History of pulmonary embolism. 4. Coronary artery disease. 5. Dementia. 6. Degenerative joint disease. 7. Chronic obstructive pulmonary disease. 8. Status post coronary artery bypass graft. 9. Hyperlipidemia. BRIEF HISTORY OF PRESENT ILLNESS: This is an 85-year-old female who [facility] a [facility] who was transferred to [facility] for multiple skin tears and discoloration to her upper and lower extremities as well as her upper and lower torso. The patient is a poor historian, therefore, majority of her history was taken from the transfer notes as well as from the nursing transfer notes. PAST MEDICAL HISTORY: Includes diabetes type 2, hypertension, psychosis, bilateral DVT, pulmonary embolus, CAD, dementia, DJD, COPD, status post coronary artery bypass graft, and coronary artery disease. LAB DATA: While in the ER, the patient had her initial lab work that revealed a white count of 10.6, hemoglobin 11.5, hematocrit 34.3, and platelets 150,000. Her chem metabolic panel: Sodium was 147, potassium 3.3, chloride 102, bicarbonate 34.7, BUN 36, creatinine 0.6, and glucose 87. Her UA was positive for leukocyte esterase. CURRENT MEDICATIONS: Include atorvastatin, carvedilol, furosemide, hydrocodone, insulin sliding scale, lorazepam, pantoprazole, potassium chloride, Seroquel, Ambien, and prednisone 20 mg daily. While in the ER, the patient had a chest x-ray, which was essentially negative. HOSPITAL COURSE: The patient was seen and evaluated by ID for multiple skin tears and discoloration. During further evaluation and treatment, the patient was seen and evaluated by Dr. Nasir Rodrigez. Please see dictated note. The patient was also seen and examined by Dr. Quiorz. We will also evaluate her for her history of mental disorder. Please see dictated notes as well. The patient was subsequently discharged in stable condition, was to continue her current medications. DIRK: 12/03/2016 17:27 [facility]# [id number]
--- NOTE | 2016-12-10 12:10 | Consultation ---
DATE OF CONSULTATION: 11/25/2016 AGE: 85. SEX: Female. PHYSICIAN: Dr. Deras. DOG BREEDER: Dr. Han. REASON FOR THE CONSULT: Evaluating psychotropic medications. HISTORY OF PRESENT ILLNESS: The patient is an 85-year-old female, who was admitted under the care of Dr. Deras. The patient resides in a [facility]. The patient was admitted to the hospital with . DICTATION ENDS HERE JOB# [id number]
--- NOTE | 2016-12-24 09:06 | Progress Notes ---
DATE: Chart reviewed and the patient interviewed. Also discussed the patient's condition with the staff and reviewed records and labs. The patient seems to be sedated and she is sleepy. The patient also seems to be less agitated and she also seems to be easier to redirect her. The patient denies any side effects of medications except the patient seems to be slightly sedated. ASSESSMENT: The patient is slightly sedated. TREATMENT PLAN: We will decrease Seroquel to 12.5 mg in the morning and 25 mg at bedtime. Also, continue to monitor behavior and continue to follow up. JOB# [id number]
== END 2016-11-26 16:20 | DRG 604 ==
LOC: ER 13:44 → MSI 15:54 → UNDODISIN 11-26 13:12
PROVIDERS: ADMIT Family Medicine; ATTEND Family Medicine
DX: S40.822A Blister (nonthermal) of left upper arm, initial encounter (principal); E41 Nutritional marasmus; F03.90 Unspecified dementia, unspecified severity, without behavioral disturbance, psychotic disturbance, mood disturbance, and anxiety; E11.65 Type 2 diabetes mellitus with hyperglycemia; I11.0 Hypertensive heart disease with heart failure; I50.9 Heart failure, unspecified; E86.0 Dehydration; D64.9 Anemia, unspecified; S40.221A Blister (nonthermal) of right shoulder, initial encounter; E46 Unspecified protein-calorie malnutrition; E44.0 Moderate protein-calorie malnutrition; J44.9 Chronic obstructive pulmonary disease, unspecified; T14.8 Other injury of unspecified body region; I25.10 Atherosclerotic heart disease of native coronary artery without angina pectoris; M19.90 Unspecified osteoarthritis, unspecified site; E78.5 Hyperlipidemia, unspecified; R58 Hemorrhage, not elsewhere classified; F29 Unspecified psychosis not due to a substance or known physiological condition; S40.821A Blister (nonthermal) of right upper arm, initial encounter; S40.222A Blister (nonthermal) of left shoulder, initial encounter; R41.0 Disorientation, unspecified; Z86.711 Personal history of pulmonary embolism; Z95.1 Presence of aortocoronary bypass graft; Z86.718 Personal history of other venous thrombosis and embolism; Z79.01 Long term (current) use of anticoagulants
CPT/HCPCS: 36415-UA; 71010-TC; 80053-TC; 80061-TC; 81001-TC; 82948-90; 83036-90; 83735-TC; 84134-90; 84443-TC; 84484-TC; 85007-TC; 85025-TC; 85027-TC; 85610-TC; 85613; 85613-90; 85652-TC; 85730-90; 85730-TC; 86038-90; 86430-90; 86592-TC; 93005; 94760; 96374; 96375; 96376; J0696; J1815; J1940; J2060; J3480; J7040; Z7610